=== PATIENT | female | born 1955 | race Caucasian/White ===

== ENCOUNTER 2021-02-10 07:18 | Day surgery (SDC) | payer MEDICARE ==
[2021-02-09 10:47] VITALS: BMI 48.9
[2021-02-10] MEDS ORDERED: Lidocaine 1% MPF 2 ML VIAL ONE (09:20)
[2021-02-10] MEDS ORDERED: EPINEPHrine 1 MG/ML AMP ONE (10:09)
[2021-02-10] MEDS ORDERED: Bupivacaine PF 0.5% 30 ML VIAL ONE (10:09)
[2021-02-10] MEDS ORDERED: Fentanyl 100 MCG/2 ML VIAL ONE (10:22)
[2021-02-10] MEDS ORDERED: PROPOFOL 20 ML ONE (10:22)
[2021-02-10] MEDS ORDERED: Midazolam HCl 2 mg/2 ml Vial ONE (10:22)
[2021-02-10] MEDS ORDERED: Dexamethasone 4 mg/ml Vial ONE (10:27)
[2021-02-10] MEDS ORDERED: Lidocaine 1% PF 5 ML VIAL ONE (10:27)
[2021-02-10] MEDS ORDERED: Ondansetron PF 4 MG/2 ML Vial ONE (10:27)
[2021-02-10] MEDS ORDERED: Glycopyrrolate 0.2 MG/ML 5 ML SYRINGE ONE (10:27)
[2021-02-10] MEDS ORDERED: ePHEDrine Sulfate 50 MG/10 ML VIAL ONE (10:38)
== END 2021-02-10 12:55 | disposition home or self-care (01) ==
LOC: CSHMAMMO 07:18 → CSHSDC 12:55
PROVIDERS: ATTEND Surgery
PROC: 0HBU0ZZ Excision of Left Breast, Open Approach (ICD-10-PCS; principal; 2021-02-10)
PROC: BH3 Imaging, Skin, Subcutaneous Tissue and Breast, Magnetic Resonance Imaging (MRI) (ICD-10-PCS; 2021-02-10)
DX: D24.2 Benign neoplasm of left breast (principal); M19.90 Unspecified osteoarthritis, unspecified site; E66.01 Morbid (severe) obesity due to excess calories; Z68.42 Body mass index [BMI] 45.0-49.9, adult; Z79.899 Other long term (current) drug therapy; Z88.5 Allergy status to narcotic agent; Z87.891 Personal history of nicotine dependence
CPT/HCPCS: 19281; 76098; 88307; 88341; 88342; J0171; J0690; J1100; J2250; J2405; J2704; J3010; S0020